=== PATIENT | female | born 2000 | race African-American/Black ===

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

== ENCOUNTER 2023-07-21 16:30 | Emergency (ER) | payer OTHER, SELFPAY ==
[2023-07-21 16:31] VITALS: BP 143/72; PULSE 116; RESP 18; O2SAT 100
[2023-07-21 18:04] VITALS: BP 116/66; PULSE 86; RESP 18; O2SAT 100
--- NOTE | 2023-07-21 18:57 | ED.GENADULT ---
[facility] - General Adult General Chief complaint: Skin/Abscess/Foreign Body Stated complaint: Lump On Back of Neck Time Seen by Provider: 07/21/23 17:00 Source: patient Mode of arrival: ambulatory Limitations: no limitations History of Present Illness [facility] narrative: This is a 22-year-old female who presents to the ED with chief complaint of neck pain and lump that has been on the back of the neck for about a week. She states that started to go away initially but has come back in the last several days. She reports redness around the site and a little bit of swelling. States ibuprofen and Tylenol are not helping. She also tried warm compresses but they did not help. Denies fevers, chills, nausea, vomiting, LOC, headache, sore throat, ear pain, numbness or weakness. Related Data Home Medications Medication Instructions Recorded Confirmed acetaminophen 325 mg tablet 325 mg PO PRN PRN Pain 07/09/20 07/09/20 ibuprofen 400 mg tablet 400 mg PO PRN PRN Pain 07/09/20 07/09/20 Allergies Allergy/AdvReac Type Severity Reaction Status Date / Time No Known Allergies Allergy Verified 07/21/23 16:54 Review of Systems Review of Systems: All systems as dictated in [facility] Social History Social History (Updated 07/09/20 @ 20:36 by Charles Bay, GLORIA) Smoking status: Never smoker Gender identity (if verbalized by the patient): Female Exam Narrative: GENERAL: Well-appearing, well-nourished, and in no acute distress. HEAD: Normocephalic, atraumatic. EYES: PERRLA and EOMI. ENT: Nares clear, no rhinorrhea or epistaxis. Mucous membranes moist. Oropharynx without tonsillar hypertrophy exudate or other lesions. NECK: Supple. No adenopathy or masses. CHEST: No respiratory distress. Clear to auscultation. No wheezes rales or rhonchi HEART: Regular rate and rhythm. No murmur heard. Normal peripheral pulses. ABDOMEN: Soft, nontender, nondistended, normal active bowel sounds. MSK: Normal range of motion. No edema. SKIN: There is an area of erythema and soft tissue swelling to the mid central dorsal neck. Swelling is minimal. There does seem to be small area of fluctuance surrounded by induration. The area is warm. NEURO: Alert and oriented x3. No focal deficits. PSYCH: Normal mood and affect. Course Vital Signs Vital signs: Vital Signs Pulse Rate 116 H 07/21/23 16:31 Respiratory Rate 18 07/21/23 16:31 Blood Pressure 143/72 H 07/21/23 16:31 Pulse Oximetry 100 07/21/23 16:31 Oxygen Delivery Room Air 07/21/23 16:31 Temperature 97.7 F 07/21/23 19:13 Pulse Rate 80 07/21/23 19:13 Respiratory Rate 14 07/21/23 19:13 Blood Pressure 118/56 L 07/21/23 19:13 Pulse Oximetry 100 07/21/23 19:13 Oxygen Delivery Room Air 07/21/23 16:31 Procedures Abscess I/D neck: Date of Incision: 07/21/23 Time of Incision: 19:43 Local Anesthetic: lidocaine 1% and with epi Amount of anesthesia used (mL): 1 Technique: incised with #11 blade Amount of fluid expressed (mL): 10 Irrigation: Yes Packing used?: none I&D Results: Pus and Blood Complications: pain Abcess I&D Additional Comments: The area was initially cleansed with iodine swabs. local lidocaine with epinephrine injected once topically over the abscess. Very small stab incision made with 11 blade. Moderate amount of purulent material expressed. Small amount of blood expressed. Medical Decision Making MDM Narrative Medical decision making narrative: This is a 22-year-old female who presents to the ED with chief complaint of dorsal neck swelling and pain for the past week. Vitals are normal. Exam does reveal an abscess to the mid dorsal neck with some fluctuance and induration. Confirmed this with bedside ultrasound. Abscess incision and drainage was performed with local injection of lidocaine with epi. Was able to express moderate amount of purulent material.
[2023-07-21 19:13] VITALS: BP 118/56; PULSE 80; RESP 14; TEMP 36.5; O2SAT 100
== END 2023-07-21 19:50 | disposition home or self-care (01) ==
PROVIDERS: Emergency Provider Physician Assistant
DX: L02.11 Cutaneous abscess of neck (principal)
CPT/HCPCS: 10060; 99283

== ENCOUNTER 2023-10-07 17:30 | Emergency (ER) | payer OTHER, SELFPAY ==
--- NOTE | ~2023-10-07 | CT_ITS ---
EXAMINATION: CT abdomen pelvis w con DATE: 10/07/2023 19:04 INDICATION: RLQ pain TECHNIQUE: Computed tomography (CT) of the abdomen and pelvis was performed with intravenous contrast . Automated exposure control and iterative reconstruction technique were employed. The dose-length pr oduct was 299.44 mGy-cm. COMPARISON: 07/09/2020. FINDINGS: Lower thorax: Unremarkable Liver: Normal. Biliary/Gallbladder: Gallbladder is normal. No bile duct dilation. Pancreas: No mass or duct dilation. Spleen: Normal. Adrenals:No mass. Kidneys: No suspicious mass, obstructing stone, or hydronephrosis. GI tract: Mild distal esophageal and gastric wall edema. No small or large bowel dilation. Normal sahra endix. Mesentery/Peritoneum: No ascites, mass, or free air. Retroperitoneum: No mass. Pelvis: Pelvic organs are within normal limits. Soft Tissues: Soft tissues and body wall unremarkable. Bones: No acute osseous finding. IMPRESSION: Mild esophagitis/gastritis. Otherwise, no acute abdominopelvic process detected. Reviewed, dictated and finalized at location K. ON PICTURE PROJECTIONIST APPRENTICE
[2023-10-07 17:33] VITALS: BP 116/74; PULSE 82; RESP 20; TEMP 37.1; O2SAT 95
[2023-10-07 17:52] VITALS: BP 126/82; PULSE 88; RESP 18; O2SAT 99
[2023-10-07 17:57] LABS: Basophils Percent Auto 0.3 % (0.2-1.2); Eosinophils Absolute Auto 0.1 K/mm3 (0-0.3); Eosinophils Percent Auto 0.9 % (0-4.4); Hematocrit 42.2 % (37.0-47.0); Hemoglobin 13.6 g/dL (12.0-15.0); Immature Granulocyte Absolute 0.03 K/mm3 (0.00-0.031); Immature Granulocyte Percent A 0.3 % (0-0.5); Lymphocytes Absolute Auto 3.99 K/mm3 (0.9-3.2); Lymphocytes Percent Auto 39.2 % (18.3-44.2); Mean Corpuscular HGB Conc 32.2 g/dl (32-36); Mean Corpuscular Hemoglobin 27.3 pg (26-34); Mean Corpuscular Volume 84.7 fl (80-100); Mean Platelet Volume 9.8 fl (7.4-10.4); Monocytes Absolute Auto 0.7 K/mm3 (0.1-0.6); Monocytes Percent Auto 6.5 % (2.6-8.5); Neutrophils Absolute Auto 5.4 K/mm3 (1.3-6.7); Neutrophils Percent Auto 52.8 % (45.5-73.1); Platelet Count Result 241 k/mm3 (150-375); Red Blood Count 4.98 M/mm3 (4.2-5.4); Red Cell Distribution Width 13.2 % (11.5-14.5); White Blood Count 10.2 K/mm3 (4.5-10.0)
[2023-10-07 18:08] LABS: Alanine Aminotransferase 33 U/L (6-35); Albumin Level 4.6 g/dL (3.5-5.1); Alkaline Phosphatase 50 U/L (38-126); Anion Gap 11 mmol/L (8-16); Aspartate Amino Transferase 33 U/L (14-36); Bilirubin,Total 0.5 mg/dL (0.2-1.3); Blood Urea Nitrogen 6 mg/dL (7-17); Calcium 9.8 mg/dL (8.4-10.2); Carbon Dioxide 24 mmol/L (22-30); Chloride 107 mmol/L (98-107); Estimated CRCL calculation 104 ml/min; Estimated Glomerular Filt Rate > 60; Glucose 92 mg/dL (65-110); Lipase 190 U/L (23-300); Potassium 3.5 mmol/L (3.4-5.0); Sodium 142 mmol/L (137-145)
[2023-10-07 18:19] LABS: Appearance Urine Clear (Clear); Bacteria Urine Rare /hpf; Bilirubin Urine Negative (Negative); Blood Urine 2+ (Negative); Color Urine Yellow (Yellow); Glucose Urine UA Negative (Negative); Ketones Urine Negative (Negative); Leukocyte Esterase Ur Negative LEU/UL (Negative); Nitrate Urine Negative (Negative); Non Pathogenic Casts 0-2; Protein Urine Negative (Negative); RBC Urine 21-50 /hpf (0-2); Specific Grav Ur 1.019 (1.001-1.035); Squamous Epithelial Cell Urine Occasional /hpf (Few); WBC Urine 0-5 /hpf; pH Urine 6.5 (5.0-9.0)
--- NOTE | 2023-10-07 18:24 | ED.ABDPAIN ---
HPI - Abdominal Pain General Chief Complaint: Abdominal Pain Stated Complaint: abd pain Time Seen by Provider: 10/07/23 17:39 History of Present Illness HPI narrative: Patient is a 23-year-old female presenting with abdominal pain. States that she has had intermittent right-sided abdominal pain for several months. She has seen her PCP who started her on an antispasmodic which she states only helps for short period. States that normally the pain is higher up in her abdomen but over the last couple days its been on the lower right side that has been worse than normal. States that she sometimes vomits after eating. Denies current nausea. Reports chronic intermittent diarrhea that is unchanged. No dysuria, hematuria, flank pain, vaginal discharge, vaginal bleeding. No further complaints. Related Data Home Medications Medication Instructions Recorded Confirmed acetaminophen 325 mg tablet 325 mg PO PRN PRN Pain 07/09/20 07/09/20 ibuprofen 400 mg tablet 400 mg PO PRN PRN Pain 07/09/20 07/09/20 Allergies Allergy/AdvReac Type Severity Reaction Status Date / Time No Known Allergies Allergy Verified 10/07/23 17:32 Review of Systems Review of Systems: All systems reviewed & are unremarkable except as noted in HPI and below PMFSH Social History Social History Smoking status: Never smoker Gender identity (if verbalized by the patient): Female Exam Narrative: GENERAL: Well-appearing, in no acute distress pleasant and cooperative HEAD: Normocephalic, atraumatic. EYES: PERRLA and EOMI. ENT: Mucous membranes moist. NECK: Supple. CHEST: Clear to auscultation. No respiratory distress. HEART: Regular rate and rhythm ABDOMEN: Soft, +RLQ tenderness wo guarding or rebound EXTREMITIES: Normal range of motion. SKIN: Warm, dry, no rash. NEURO: Alert and oriented x3. PSYCH: Normal mood and affect. Course Vital Signs Vital signs: Vital Signs Temperature 98.7 F 10/07/23 17:33 Pulse Rate 82 10/07/23 17:33 Respiratory Rate 20 10/07/23 17:33 Blood Pressure 116/74 10/07/23 17:33 Pulse Oximetry 95 10/07/23 17:33 Oxygen Delivery Room Air 10/07/23 17:33 Temperature 98.7 F 10/07/23 17:33 Pulse Rate 73 10/07/23 20:15 Respiratory Rate 17 10/07/23 20:15 Blood Pressure 120/75 10/07/23 19:15 Pulse Oximetry 99 10/07/23 20:15 Oxygen Delivery Room Air 10/07/23 17:33 MDM - Abdominal Pain MDM Narrative Medical decision making narrative: 23-year-old female presenting with right lower quadrant pain. Vitals are stable. Exam remarkable for the above. Blood work with mild leukocytosis. Normal renal function. UA is not infected. CT abdomen pelvis with esophagitis/gastritis. No other acute abnormalities. Feel the patient is safe for outpatient management. We will start her on a month of H2 salvador and give GI referral for chronic abdominal pain. Appropriate return precautions given. Discharged in stable condition. Differential Diagnosis Differential diagnosis: Likely abdominal pain, acute appendicitis, constipation, diverticulitis, gastroenteritis, pancreatitis and small bowel obstruction Medical Records Attestation: I reviewed the patient's medical records. Lab Data Attestation: I reviewed the patient's lab results. 10/07/23 17:52 10/07/23 17:52 Labs: Lab Results 10/07/23 10/07/23 Range/Units 17:52 18:04 WBC 10.2 H (4.5-10.0) K/mm3 RBC 4.98 (4.2-5.4) M/mm3 Hgb 13.6 (12.0-15.0) g/dL Hct 42.2 (37.0-47.0) % MCV 84.7 (80-100) fl MCH 27.3 (26-34) pg MCHC 32.2 (32-36) g/dl RDW 13.2 (11.5-14.5) % Plt Count 241 (150-375) k/mm3 MPV 9.8 (7.4-10.4) fl Immature Gran % (Auto) 0.3 (0-0.5) % Neut % (Auto) 52.8 (45.5-73.1) % Lymph % (Auto) 39.2 (18.3-44.2) % Shannon % (Auto) 6.5 (2.6-8.5) % Eos % (Auto) 0.9 (0-4.4) % Baso % (Auto) 0.3 (0
[2023-10-07 18:27] LABS: Add Urine Microscopic? YES
[2023-10-07] MEDS: KETOROLAC 30 MG/ML VIAL (*BKC) IV PUSH (18:44)
[2023-10-07] MEDS: SODIUM CHLORIDE 0.9% IV 1,000 ML 999 ML IV CONT (18:44)
[2023-10-07 18:45] VITALS: BP 114/56; PULSE 80; RESP 17; O2SAT 98
[2023-10-07 19:15] VITALS: BP 120/75; PULSE 80; RESP 17; O2SAT 100
[2023-10-07 20:15] VITALS: PULSE 73; RESP 17; O2SAT 99
== END 2023-10-07 21:08 | disposition home or self-care (01) ==
PROVIDERS: Emergency Medicine; Emergency Provider Emergency Medicine
DX: K20.90 Esophagitis, unspecified without bleeding (principal); K29.70 Gastritis, unspecified, without bleeding
CPT/HCPCS: 36415; 74177; 80053; 81001; 81025; 83690; 85025; 96361; 96374; 99284; J1885; J7030; Q9967

== ENCOUNTER 2024-05-09 12:49 | Emergency (ER) | payer OTHER, SELFPAY ==
--- NOTE | ~2024-05-09 | CT_ITS ---
EXAMINATION: CT abdomen pelvis w con DATE: 05/09/2024 14:49 INDICATION: Right lower quadrant abdominal pain TECHNIQUE: Computed tomography (CT) of the abdomen and pelvis was performed with 100 mL Omnipaque-350 intravenous contrast. Automated exposure control and iterative reconstruction technique were employe d. The dose-length product was 301.77 mGy-cm. COMPARISON: 10/07/2023 FINDINGS: Bilateral mid to lower lungs are clear. Heart size is normal. No pericardial or pleural effusion. Franci er, spleen, pancreas, gallbladder, bilateral adrenal glands and kidneys are normal. Bladder is normal . Subcentimeter hypoenhancing fibroid at the posterior fundus of the anteverted uterus. Bowels are no rmal with no obstruction. No free intraperitoneal gas or fluid. No pathologically enlarged abdominal or pelvic lymphadenopathy. Bones are unremarkable. IMPRESSION: 1. No acute intra-abdominal/pelvic process. 2. Small uterine fibroid. Reviewed, dictated and finalized at location A.
--- NOTE | ~2024-05-09 | US_ITS ---
US pelvic complete w TV Ordering provider: Tori Arevalo PA-C History: . RLQ pain, r/o torsion/cyst . Comparison: None. Technique: Transabdominal and endovaginal ultrasound of the pelvis (Doppler ultrasound interrogation techniques used as needed for this exam.) FINDINGS: CERVIX: Normal. UTERUS: Measures 6.5x 6.6x 4.6 cm in length which is within normal limits and is anteverted. No myom etrial masses. ENDOMETRIUM: Normal in thickness measuring 4 mm. (Note: the premenopausal endometrium may measure up to 16 mm when in the secretory phase.) No endometrial masses, cysts or fluid. CUL DE SAC: Minimal free fluid. RIGHT OVARY: Not seen. LEFT OVARY not seen. ADNEXA: Normal. No mass. IMPRESSION: Nonvisualization of the ovaries. Minimal fluid in the cul-de-sac.Otherwise, normal pelvic ultrasound. Reviewed, dictated and finalized at location A. IMPRESSION: Nonvisualization of the ovaries. Minimal fluid in the cul-de-sac.Otherwise, nor mal pelvic ultrasound.
[2024-05-09 12:52] VITALS: BP 120/65; PULSE 117; RESP 20; TEMP 36.8; O2SAT 97
[2024-05-09 13:07] LABS: Basophils Percent Auto 0.2 % (0.2-1.2); Eosinophils Absolute Auto 0.1 K/mm3 (0-0.3); Eosinophils Percent Auto 0.4 % (0-4.4); Hematocrit 39.3 % (37.0-47.0); Immature Granulocyte Absolute 0.04 K/mm3 (0.00-0.031); Immature Granulocyte Percent A 0.4 % (0-0.5); Lymphocytes Absolute Auto 2.96 K/mm3 (0.9-3.2); Lymphocytes Percent Auto 26.2 % (18.3-44.2); Mean Corpuscular HGB Conc 33.1 g/dl (32-36); Mean Corpuscular Hemoglobin 27.8 pg (26-34); Mean Corpuscular Volume 84.2 fl (80-100); Mean Platelet Volume 9.9 fl (7.4-10.4); Monocytes Absolute Auto 0.7 K/mm3 (0.1-0.6); Monocytes Percent Auto 5.8 % (2.6-8.5); Neutrophils Absolute Auto 7.6 K/mm3 (1.3-6.7); Platelet Count Result 215 k/mm3 (150-375); Red Blood Count 4.67 M/mm3 (4.2-5.4); Red Cell Distribution Width 13.2 % (11.5-14.5); White Blood Count 11.3 K/mm3 (4.5-10.0)
[2024-05-09 13:21] LABS: Alanine Aminotransferase 35 U/L (6-35); Albumin Level 4.5 g/dL (3.5-5.1); Alkaline Phosphatase 52 U/L (38-126); Anion Gap 8 mmol/L (4-12); Aspartate Amino Transferase 39 U/L (14-36); Bilirubin,Total 0.5 mg/dL (0.2-1.3); Blood Urea Nitrogen 10 mg/dL (7-17); Calcium 9.5 mg/dL (8.4-10.2); Carbon Dioxide 23 mmol/L (22-30); Chloride 107 mmol/L (98-107); Estimated CRCL calculation 114 ml/min; Estimated Glomerular Filt Rate > 60; Glucose 109 mg/dL (65-110); Lipase 763 U/L (23-300); Potassium 3.7 mmol/L (3.4-5.0); Sodium 138 mmol/L (137-145)
[2024-05-09 14:01] LABS: Appearance Urine Clear (Clear); Bacteria Urine None Seen /hpf; Bilirubin Urine Negative (Negative); Blood Urine 2+ (Negative); Color Urine Yellow (Yellow); Glucose Urine UA Negative (Negative); Ketones Urine 1+ mg/dL (Negative); Leukocyte Esterase Ur Negative LEU/UL (Negative); Nitrate Urine Negative (Negative); Non Pathogenic Casts 0-2; Protein Urine Negative (Negative); RBC Urine 21-50 /hpf (0-2); Specific Grav Ur 1.028 (1.001-1.035); Squamous Epithelial Cell Urine None Seen /hpf (Few); WBC Urine 0-5 /hpf (0-3); pH Urine 6.5 (5.0-9.0)
[2024-05-09 14:12] LABS: Add Urine Microscopic? YES
--- NOTE | 2024-05-09 14:25 | ED.ABDPAIN ---
HPI - Abdominal Pain General Chief Complaint: Abdominal Pain Stated Complaint: abd pain Time Seen by Provider: 05/09/24 13:15 Source: patient Mode of arrival: ambulatory Limitations: no limitations History of Present Illness HPI narrative: patient is a 23-year-old female who presents the ED with report of right lower abdominal pain. Patient reports pain has been intermittent for the last several months. She states pain has become worse and more constant over last few days. Radiates slightly to her right lower back. She has been taking Tylenol for the pain without improvement. States she was previously told she may have gastritis, but has been taking medication for this and denies improvement. reports diarrhea for the last 2 days, denies rectal bleeding or melena. Denies nausea, vomiting, fevers, dysuria, hematuria, vaginal bleeding, vaginal discharge. Related Data Home Medications Medication Instructions Recorded Confirmed acetaminophen 325 mg tablet 325 mg PO PRN PRN Pain 07/09/20 07/09/20 ibuprofen 400 mg tablet 400 mg PO PRN PRN Pain 07/09/20 07/09/20 Allergies Allergy/AdvReac Type Severity Reaction Status Date / Time No Known Allergies Allergy Verified 10/07/23 17:32 Review of Systems Review of Systems: CONSTITUTIONAL: Denies fever, chills, or sweats. GASTROINTESTINAL: See HPI. GENITOURINARY: Denies dysuria or hematuria. MUSCULOSKELETAL: See HPI. All systems reviewed & are unremarkable except as noted in HPI and below PMFSH Social History Social History Smoking status: Never smoker Gender identity (if verbalized by the patient): Female Exam Narrative: GENERAL: Well appearing, well-nourished, non-toxic, in no acute distress. HEAD: Normocephalic, atraumatic. RESPIRATORY: Airway patent, respirations nonlabored. Clear to auscultation bilaterally, no rales, rhonchi, wheezing. CARDIOVASCULAR: Regular rate and rhythm without murmurs, rubs, or gallops. ABDOMINAL: Soft, Mild focal tenderness in right lower abdomen, no rebound, nondistended. Normoactive BS. MUSCULOSKELETAL: Moves all extremities. No gross deformities. SKIN: Warm, dry, normal color. NEURO: A&O X3. Speech clear. Cranial nerves II-XII grossly intact. Steady gait. No ataxic movements. PSYCHIATRIC: Appropriate mood and affect. Normal interaction. Course Vital Signs Vital signs: Vital Signs Temperature 98.2 F 05/09/24 12:52 Pulse Rate 117 H 05/09/24 12:52 Respiratory Rate 20 05/09/24 12:52 Blood Pressure 120/65 05/09/24 12:52 Pulse Oximetry 97 05/09/24 12:52 Oxygen Delivery Room Air 05/09/24 12:52 Temperature 98.2 F 05/09/24 12:52 Pulse Rate 91 05/09/24 16:35 Respiratory Rate 16 05/09/24 16:35 Blood Pressure 99/68 L 05/09/24 16:35 Pulse Oximetry 99 05/09/24 16:35 Oxygen Delivery Room Air 05/09/24 12:52 MDM - Abdominal Pain MDM Narrative Medical decision making narrative: patient presented to ED with several month history of right lower abdominal pain, worsening over last few days. Associated with diarrhea. No other associated symptoms. Vitals are stable. Patient in no acute distress, resting comfortably on ED stretcher. Mild right lower abdominal tenderness on exam. CBC with white blood cell count of 11.3. CMP unremarkable. Normal LFTs. Lipase is mildly elevated to 763. Patient without any epigastric tenderness, nausea, vomiting, food intolerance. Urine with ketones, 21-50 RBC, no signs of infection. CT scan of abdomen pelvis was obtained and unremarkable. Did show small uterine fibroid. No evidence of pancreatitis. Pelvic ultrasound obtained and did not show either ovary, but no adnexal abnormality was noted, minimal free fluid, no other acute findings. Patient updated on lab and imaging results, overall reassuring workup. She reports she has microscopic blood in her urine frequently, she has been to
[2024-05-09] MEDS: MORPHINE SULFATE (*CRX) 2 MG/ML INJ IV PUSH (14:28)
[2024-05-09] MEDS: ONDANSETRON INJ 4 MG/2 ML VIAL IV PUSH (14:28)
[2024-05-09 16:35] VITALS: BP 99/68; PULSE 91; RESP 16; O2SAT 99
== END 2024-05-09 16:37 | disposition home or self-care (01) ==
PROVIDERS: Emergency Medicine; Emergency Provider Physician Assistant
DX: R10.31 Right lower quadrant pain (principal); D25.9 Leiomyoma of uterus, unspecified; R74.8 Abnormal levels of other serum enzymes
CPT/HCPCS: 36415; 74177; 76830; 76856; 80053; 81001; 81025; 83690; 85025; 96374; 96375; 99284; J2270; J2405; Q9967

== ENCOUNTER 2025-03-12 22:24 | Observation (INO) | payer OTHER, SELFPAY ==
[2025-03-12] VITALS (10 sets, daily range): BP systolic 118–126; BP diastolic 69–80; PULSE 77–103; O2SAT 98–100
--- OUTSIDE RECORDS SUMMARY | 2025-03-12 22:32 | XMS_ITS | Clinical Summary ---
Author Organization [facility] Address [address] 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 This disclosure is being madepursuant to the Care Everywhere program and may not contain all information available regarding this patient. Last updated 18.[facility] Allergies No known active allergies Medications * Be aware that medications may not be up to date on this document. Alwaysverify current medications with the patient. 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 Gender Identity Not on file Sexual Orientation Not on file Last Filed Vital Signs Vital Sign Reading Time Taken Comments Blood Pressure 121/61 10/09/2015 10:22 PM CULLET CRUSHER Pulse 130 10/09/2015 10:30 PM CULLET CRUSHER Temperature 37.5 C (99.5 F) 10/09/2015 10:30 PM CULLET CRUSHER Respiratory Rate 20 10/09/2015 10:30 PM CULLET CRUSHER Oxygen Saturation 98% 10/09/2015 10:22 PM CULLET CRUSHER Inhaled Oxygen Concentration - - Weight 62.3 kg (137 lb 5.6 oz) 10/09/2015 10:22 PM CULLET CRUSHER Height - - Body Mass Index - - Plan of Treatment Health Maintenance Due Date Last Done Comments PAP SMEAR 2002 HIV SCREENING 2017 HPV VACCINE (1 - 3-dose series) 2017 CHLAMYDIA/GONORRHEA SCREENING 2018 MENINGOCOCCAL (Group B) VACC INE SHARED DECISION-MAKING (1 of 2 - Standard) 2018 HEPATITIS C SCREENING 07/26/2020 DTAP/TDAP/TD VACCINES (1 - Tdap) 2021 HEPATITIS B VACCINE (1 of 3 - 19+ 3-dose series) 2021 COVID-19 VACCINE (1 - 2023-2 5 season) 2024 DEPRESSION SCREENING 11/26/2024 INFLUENZA VACCINE (Season Ended) 2025 ZOSTER VACCINE (1 of 2) 2052 HIB VACCINE Aged Out No longer eligi ble based on patient's age to complete this topic MENINGOCOCCAL GROUPS A/C/Y/W VACCINE Aged Out No longer eligible b ased on patient's age to complete this topic PNEUMOCOCCAL VACCINE Aged Out No long er eligible based on patient's age to complete this topic Insurance [facility] Care Teams Pie Bakery Laborer Relationship Specialty Start Date End Date Liza Tay DO PCP - General Pediatrics 10/09/15
--- OUTSIDE RECORDS SUMMARY | 2025-03-12 22:32 | XMS_ITS | Encounter Summary ---
Author Organization [facility] Address [address] [place] [address] Care Team Providers Care Private Inquiry Agent Name Role Phone Barbie Rodriguez MD Primary Care Provider [phone] Encounter Details Date Type Department Care Team (Late st Contact Info) Description 03/10/2025 External Device Data [facility] ABSTRACTION Provider, Abstract NO ADDRESS ON FILE Social History Tobacco Use Types Packs/Day Years Used Date Smoking Tobacco: Never Smokeless Tobacco: Never Alcohol Use Standard Drinks/Week Comments Never 0 (1 standard drink = 0.6 oz pur e alcohol) Comments No Sex and Gender Information Value Date Recorded Sex Assigned at Not on file Legal 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
--- OUTSIDE RECORDS SUMMARY | 2025-03-12 22:32 | XMS_ITS | Clinical Summary ---
Author Organization [facility] [place] Address [address] [place] [id number] Care Team Providers Care Senior Care Manager Name Role Phone Barbie Rodriguez MD Primary Care Provider [phone] Allergies No known active allergies Medications fluticasone propionate (FLONASE) 50 mcg/spray [place], Suspension nasal inhaler Administer 2 Sprays in each nostril daily. 16 Gram 3 Active Slynd 4 mg (28) Tablet Take 1 Tablet by mouth daily. 3 Active omeprazole (PriLOSEC) 20 mg Capsule, Delayed Release(E.C.)In dications:Dyspe psia Take 1 Capsule (20 mg) by mouth daily. 30 Capsule 4 Active mefenamic acid (PONSTEL) 250 mg Capsule Take 2 capsules (500 mg) by mouth at start of vaginal bleeding and symptoms, then one capsule ( 250 mg) every 6 hours for 2 to 3 days and stop. 30 Capsule 4 Active Active Problems Problem Noted Date Diagnosed Date Dyspepsia 10/16/2023 Generalized anxiety disorder 05/31/2023 Encounters Date Type Department Care Team Description 03/10/2025 External Device Data STL ABSTRACTION Provider, Abstract 02/11/2025 External Device Data STL ABSTRACTION Provider, Abstract 02/11/2025 External Device Data ST[facility] ABSTRACTION Provider, Abstract 01/31/2025 External Device Data [facility] ABSTRACTION Provider, Abstract 01/30/2025 External Device Data [facility] ABSTRACTION Provider, Abstract 01/27/2025 External Device Data ST[facility] ABSTRACTION Provider, Abstract 01/13/2025 External Device Data STL ABSTRACTION Provider, Abstract 12/23/2024 External Device Data STL ABSTRACTION Provider, Abstract 12/17/2024 External Device Data STL ABSTRACTION Provider, Abstract 12/16/2024 External Device Data STL ABSTRACTION Provider, Abstract from Last 3 Months Immunizations Immunization Administration Dates Next Due INFLUENZA VACCINE QUADRIVALENT 6 MOS UP PF IM Family History Medical History Relation Name Comments No Known Problems Father No Known Problems Half-Sister 1 No Known Problems Half-Sister 2 No Known Problems Maternal Grandfather Liver Disease Maternal Grandmother No Known Problems Mother Unknown Paternal Grandfather Unknown Paternal Grandmother Relation Name Status Comments Father Alive Half-Sister 1 Alive Half-Sister 2 Alive Maternal Grandfather Alive Maternal Grandmother Mother Alive Paternal Grandfather Other Paternal Grandmother Other Social History Tobacco Use Types Packs/Day Years Used Date Smoking Tobacco: Never Smokeless Tobacco: Never Tobacco Cessation:Counseling Given: Not Answered Alcohol Use Standard Drinks/Week Comments Never 0 (1 standard drink = 0.6 oz pur e alcohol) Comments No Sex and Gender Information Value Date Recorded Sex Assigned at Not on file Legal Sex Female 3:[address] [employer] Gender Identity Not on file Sexual Orientation Not on file Last Filed Vital Signs Vital Sign Reading Time Taken Comments Blood Pressure 116/68 06/24/2024 1:47 PM CDT Pulse 96 06/23/2024 2:28 PM CDT Temperature 36.6 C (97.8 F) 06/23/2024 2:28 PM CDT Respiratory Rate 16 11/13/2023 10:[address] L[address] Oxygen Saturation 98% 06/23/2024 2:28 PM CDT Inhaled Oxygen Concentration - - Weight 68 kg (150 lb) 06/24/2024 1:47 PM CDT Height 158.8 cm (5' 2.5 ) 06/24/2024 1:47 PM CDT Body Mass Index 27 06/24/2024 1:47 PM CDT Plan of Treatment Health Maintenance Due Date Last Done Comments CHLAMYDIA SCREENING (ANNUAL) 11-24 YEARS 2013 HPV VACCINES (1 - 3-dose series) 2017 DTAP/TDAP/TD VACCINES (1 - Tdap) 2021 HEPATITIS B VACCINES (1 of 3 - 19+ 3-dose series) 2021 CERVICAL CANCER SCREENING 2023 HPV/Cotest (21-29) 2023 PAP SMEAR 2023 INFLUENZA VACCINE (#1) 2024 08/22/2023 PNEUMOCOCCAL VACCINE 0-49 YEARS Aged Out No longer eligible based on patient's age to complete this topic Insurance [facility] OPEN ACCESS Care Teams Senior Care Manager Relationship Specialty Start Date End Date Barbie Rodriguez MD [address] [place] [id number] PCP - General Internal Medicine 06/20/24
--- NOTE | 2025-03-12 22:49 | PC.NURSE ---
Pt is a presenting to L&D with complaints of RUQ pain that shoots down to vaginal area. Pt states the pain comes and goes and has been present since this AM. Pt rating pain 7/10. Pt denies any vaginal bleeding, LOF, falls or trauma to abdomen. Pt states she has not taken any pain medication for this pain. Abdomen is soft to palpation. Upon palpation, pt states pain is worsened.
[2025-03-12 22:57] LABS: Add Urine Microscopic? YES; Appearance Urine Clear (Clear); Bacteria Urine Rare /hpf; Bilirubin Urine Negative (Negative); Blood Urine Trace (Negative); Color Urine Yellow (Yellow); Glucose Urine UA Negative (Negative); Ketones Urine Negative (Negative); Leukocyte Esterase Ur Negative LEU/UL (Negative); Nitrate Urine Negative (Negative); Non Pathogenic Casts 0-2; Protein Urine Negative (Negative); Specific Grav Ur 1.015 (1.001-1.035); Squamous Epithelial Cell Urine None Seen /hpf (Few); Urobilinogen Urine 0.2 mg/dL (<2.0); WBC Urine 0-5 /hpf (0-3); pH Urine 6.5 (5.0-9.0)
--- NOTE | 2025-03-12 23:09 | PC.NURSE ---
RN called MD and notified him of pts arrival to L&D with complaints of RUQ pain that shoots down to vaginal area. Pt states the pain comes and goes and has been present since this AM. Pt rating pain 7/10. Pt denies any vaginal bleeding, LOF, falls, or trauma to abdomen. Pt states she has not taken any pain medication for this pain. Abdomen is soft to palpation. Upon palpation, pt states pain is worsened. MD notified of pts UA results as well as reactive NST. Orders received for 1gm Tylenol PO Once and discharge.
[2025-03-12] MEDS: ACETAMINOPHEN 500 MG TABLET 1000 MG PO (23:20)
--- NOTE | 2025-03-12 23:28 | OBADM ---
This patient, Brigid Alicea, admitted to the OB room OB Post 117 for observation. Patient/family oriented to hospital policies and general routines including ID bracelet, bed and alarms, visiting hours, pain management, procedures, bathroom and other care routines, personal items, smoking policy, room service/diet, and visiting hours. Patient/Family are encouraged to report perceived risks to care and to ask questions if they do not understand what they are told or what they should do.
--- NOTE | 2025-03-23 08:58 | PM.OBTRLD ---
OB - Triage/Final Diagnosis Visit Information Comments/Additional reasons for admission: I have assessed the risk for this patient, Brigid Alicea, and determined that she would benefit from observation care. Evaluation Laboratory results: Laboratory Tests 03/12/25 22:44 Urine Color Yellow Urine Appearance Clear Urine pH 6.5 Ur Specific [place] 1.015 Urine Protein Negative Urine Glucose (UA) Negative Urine Ketones Negative Ur Blood (Man) Trace Urine Nitrate Negative Urine Bilirubin Negative Urine Urobilinogen 0.2 Leukocyte Esterase Rfl Negative Urine RBC 6-10 H Urine WBC 0-5 Ur Squamous Epith Cells None seen Urine Bacteria Rare Urine Casts 0-2 Final Diagnosis (1) Abdominal pain affecting : Code(s): O26.899 - Other specified related conditions, unspecified trimester; R10.9 - Unspecified abdominal pain Status: Acute
== END 2025-03-12 23:26 | disposition home or self-care (01) ==
PROVIDERS: Admitting Provider Obstetrics & Gynecology; Visit Provider Obstetrics & Gynecology
DX: O26.899 Other specified pregnancy related conditions, unspecified trimester (principal); R10.9 Unspecified abdominal pain; Z3A.00 Weeks of gestation of pregnancy not specified
CPT/HCPCS: 59025; 81001; A9270; G0378; G0379

== ENCOUNTER 2025-04-22 08:24 | Inpatient (IN) | payer OTHER, SELFPAY ==
[2025-04-22] VITALS (218 sets, daily range): BP systolic 76–163; BP diastolic 37–122; PULSE 74–125; RESP 16–20; TEMP 36.2–37.1; O2SAT 94–100; BMI 37.0
--- OUTSIDE RECORDS SUMMARY | 2025-04-22 10:12 | XMS_ITS | Clinical Summary ---
Author Organization [facility] Address [address] [place] [address] Care Team Providers Care Application Software Engineer Name Role Phone Liza Tay Primary Care Provider [phone] Source Comments [facility],non-owned Affiliates and Associated Physician Practices is amultiple site organization consisting of ambulatory clinics and hospital sitesin [place], [place], [place] and [place]. This disclosure is being madepursuant to the Care Everywhere program and may not contain all information available regarding this patient. Last updated 18.[facility] Allergies No known active allergies Medications * [...] on file Legal Sex Female 10:08 PM PREFINISH OPERATOR Gender Identity Not on file Sexual Orientation Not on file Last Filed Vital Signs Vital Sign Reading Time Taken Comments Blood Pressure 121/61 10/09/2015 10:22 PM PREFINISH OPERATOR Pulse 130 10/09/2015 10:30 PM PREFINISH OPERATOR Temperature 37.5 C (99.5 F) 10/09/2015 10:30 PM PREFINISH OPERATOR Respiratory Rate 20 10/09/2015 10:30 PM PREFINISH OPERATOR Oxygen Saturation 98% 10/09/2015 10:22 PM PREFINISH OPERATOR Inhaled Oxygen Concentration - - Weight 62.3 kg (137 lb 5.6 oz) 10/09/2015 10:22 PM PREFINISH OPERATOR Height - - Body Mass Index - - Plan of Treatment Health Maintenance Due Date Last Done Comments HIV SCREENING 2017 HPV VACCINE (1 - [...] patient's age to complete this topic Insurance [facility] Care Teams Application Software Engineer Relationship Specialty Start Date End Date Liza Tay DO PCP - General Pediatrics 10/09/15
--- OUTSIDE RECORDS SUMMARY | 2025-04-22 10:12 | XMS_ITS | Clinical Summary ---
Author Organization [facility] [employer] [place] Address [address] [place] [id number] Care Team Providers Care Radio Division Lieutenant Name Role Phone Barbie Rodriguez MD Primary Care Provider [phone] Allergies No known active allergies Medications fluticasone propionate (FLONASE) 50 mcg/spray [place], Suspension nasal inhaler Administer 2 Sprays in [...] Encounters Date Type Department Care Team Description 04/16/2025 External Device Data STL ABSTRACTION Provider, Abstract 04/16/2025 External Device Data STL ABSTRACTION Provider, Abstract 04/16/2025 External Device Data STL ABSTRACTION Provider, Abstract 04/15/2025 External Device Data STL ABSTRACTION Provider, Abstract 04/14/2025 External Device Data STL ABSTRACTION Provider, Abstract 03/10/2025 External Device Data STL ABSTRACTION Provider, [...] on file Legal Sex Female 3:02 PM ADMITTING CLERK Gender Identity Not on file Sexual Orientation Not on file Last Filed Vital Signs Vital Sign Reading Time Taken Comments Blood Pressure 116/68 06/24/2024 1:47 PM CDT Pulse 96 06/23/2024 2:28 PM CDT Temperature 36.6 C (97.8 F) 06/23/2024 2:28 PM CDT Respiratory Rate 16 11/13/2023 10:59 AM ADMITTING CLERK Oxygen Saturation 98% 06/23/2024 2:28 PM CDT Inhaled Oxygen Concentration - - Weight 68 kg (150 lb) 06/24/2024 1:47 PM CDT Height 158.8 cm (5' 2.5) 06/24/2024 1:47 PM CDT Body Mass Index 27 06/24/2024 1:47 PM CDT Plan of Treatment Health Maintenance Due Date Last Done Comments CHLAMYDIA SCREENING (ANNUAL) 11-24 YEARS 2013 HPV VACCINES (1 - 3-dose series) 2017 DTAP/TDAP/TD VACCINES (1 - Tdap) 2021 HEPATITIS B VACCINES (1 of 3 - 19+ 3-dose series) 03/2021 CERVICAL CANCER SCREENING 2023 HPV/Cotest (21-29) 2023 PAP SMEAR 2023 INFLUENZA VACCINE (#1) 2024 08/22/2023 Insurance [employer] OPEN ACCESS Care Teams Radio Division Lieutenant Relationship Specialty Start Date End Date Barbie Rodriguez MD [address] [place] [id number] PCP - General Internal Medicine 06/20/24
--- NOTE | 2025-04-22 10:42 | PM.IMHP ---
H&P: HPI History of Present Illness Date/Time: 04/22/25 10:42 Chief Complaint: Labor at term Narrative: This is a 23-year-old 1 para 0 whose last menstrual period was 07/15/2024, EDC is 04/21/2025, presents at 417 weeks gestation active labor. She has positive group B strep and has an otherwise unremarkable she was positive for THC on her admitting [facility] Review of Systems Review of Systems: CONSTITUTIONAL: Denies fever, chills, or sweats. GASTROINTESTINAL: See HPI. GENITOURINARY: Denies dysuria or hematuria. MUSCULOSKELETAL: See HPI. All systems reviewed & are unremarkable except as noted in HPI and below PMFSH Family History Family History Grandparent Diabetes mellitus Cancer Other Hypertension Social History Social History Smoking status: Never smoker Substance use: never Do You Feel Safe in your Home?: Yes Lack of Transportation: No Lack of Food: Never True Current Housing: I Have Housing Concerned About Future Housing: No Difficulty Paying Gas/Electric Bills: No Difficulty Paying for Meds: No Currently Unemployed: No Education: High School Diploma/GED Difficulty w/ Childcare or Family Care: No Gender identity (if verbalized by the patient): Female Spiritual care concerns: No Meds Home Medications and Allergies Home Medications ?Medication ?Instructions ?Recorded ?Confirmed ?Type acetaminophen 325 mg tablet 325 mg PO PRN PRN Pain 07/09/20 04/04/25 History calcium carbonate (Tums) 300 mg PO QID PRN dyspepsia 04/04/25 04/04/25 History vits no.130-ferrous fum 1 tablet PO DAILY 04/04/25 04/04/25 History 27 mg iron-folic acid 800 mcg tablet ( Vitamin) Allergies Allergy/AdvReac Type Severity Reaction Status Date / Time No Known Allergies Allergy Verified 04/04/25 13:38 Vital Signs Vital Signs - 24 hr 04/22/25 10:08 04/22/25 10:13 04/22/25 10:18 Pulse Rate Blood Pressure Pulse Oximetry 98 98 98 04/22/25 10:23 04/22/25 10:28 04/22/25 10:31 Pulse Rate Blood Pressure 138/120 H Pulse Oximetry 97 98 04/22/25 10:32 04/22/25 10:33 Pulse Rate 85 Blood Pressure 142/66 H Pulse Oximetry 100 Exam Const: General: cooperative, healthy appearing and comfortable Nutritional Appearance: average body habitus Orientation/consciousness: oriented to person, oriented to place and oriented to time HENMT: Head: normal to inspection Resp: Effort & Inspection: normal respiratory effort Cardio: Rate: regular rate Rhythm: regular rhythm Heart sounds: S1 normal heart sound present and S2 normal heart sound present GI: Inspection: normal to inspection (Gravid soft uterus) : Speculum Exam - Vagina: normal appearance of the vagina Speculum Exam - Cervix: normal appearance of the cervix (Cervix 2/75/2. AROM clear. FHT is reassuring) Assessment and Plan Assessment and plan (1) Term : Code(s): Z34.90 - Encounter for supervision of normal , unspecified, unspecified trimester Status: Acute (2) Positive testing for group B Streptococcus: Code(s): B95.1 - Streptococcus, group B, as the cause of diseases classified elsewhere Status: Acute Plan Will initiate Pitocin if needed. Group B strep prophylaxis will be undertaken. She is an epidural candidate but does not choose 1 presently
[2025-04-22] MEDS: LACTATED RINGERS 1,000 ML 125 ML IV CONT ×2 (11:07→16:55)
[2025-04-22 11:08] LABS: Basophils Percent Auto 0.1 % (0.2-1.2); Eosinophils Absolute Auto 0.1 K/mm3 (0-0.3); Eosinophils Percent Auto 0.4 % (0-4.4); Hematocrit 38.5 % (37.0-47.0); Hemoglobin 12.5 g/dL (12.0-15.0); Immature Granulocyte Absolute 0.13 K/mm3 (0.00-0.031); Immature Granulocyte Percent A 0.8 % (0-0.5); Lymphocytes Absolute Auto 2.93 K/mm3 (0.9-3.2); Lymphocytes Percent Auto 19.1 % (18.3-44.2); Mean Corpuscular HGB Conc 32.5 g/dl (32-36); Mean Corpuscular Hemoglobin 27.1 pg (26-34); Mean Corpuscular Volume 83.3 fl (80-100); Mean Platelet Volume 10.6 fl (7.4-10.4); Monocytes Absolute Auto 1.1 K/mm3 (0.1-0.6); Monocytes Percent Auto 6.9 % (2.6-8.5); Neutrophils Absolute Auto 11.1 K/mm3 (1.3-6.7); Neutrophils Percent Auto 72.7 % (45.5-73.1); Platelet Count Result 252 k/mm3 (150-375); Red Blood Count 4.62 M/mm3 (4.2-5.4); Red Cell Distribution Width 14.6 % (11.5-14.5); White Blood Count 15.3 K/mm3 (4.5-10.0)
[2025-04-22] MEDS: AMPICILLIN 2 GM/NS 100 ML 2 GM/100 ML BAG IVPB (11:08)
[2025-04-22 11:54] LABS: Alanine Aminotransferase 12 U/L (6-35); Albumin Level 3.6 g/dL (3.5-5.1); Alkaline Phosphatase 149 U/L (38-126); Anion Gap 8 mmol/L (4-12); Aspartate Amino Transferase 26 U/L (14-36); Bilirubin,Total 0.2 mg/dL (0.2-1.3); Blood Urea Nitrogen 8 mg/dL (7-17); Calcium 9.1 mg/dL (8.4-10.2); Carbon Dioxide 18 mmol/L (22-30); Chloride 107 mmol/L (98-107); Estimated Glomerular Filt Rate > 60; Glucose 91 mg/dL (65-110); Potassium 3.9 mmol/L (3.4-5.0); Sodium 133 mmol/L (137-145); Uric Acid 5.8 mg/dL (2.5-7.5)
[2025-04-22 12:00] LABS: Syphilis IgG/IgM Antibody Negative (Negative)
--- NOTE | 2025-04-22 12:30 | LDADM ---
This patient, Brigid Fernandez, was admitted to Labor/Delivery/Recovery 104 on 04/22/25 at 08:24. Plans for labor, pain management and were discussed with patient. Patient/family oriented to hospital policies and general routines including ID bracelet, bed and alarms, visiting hours, pain management, procedures, bathroom and other care routines, personal items, smoking policy, room service/diet and guest tray routines, security routines, and visiting hours. Patient/Family are encouraged to report perceived risks to care and to ask questions if they do not understand what they are told or what they should do. See OBIX for further documentation.
[2025-04-22] MEDS: OXYTOCIN 30 UNITS/NS 500 ML 30 UNITS/500 ML BAG IV CONT (13:58)
[2025-04-22 14:28] LABS: HIV 1/2 Ab P24 Ag Result Negative (Negative)
[2025-04-22] MEDS: AMPICILLIN 1 GM/NS 50 ML 1 GM/50 ML BAG IVPB ×3 (15:09→23:00)
[2025-04-22] MEDS: fentaNYL CITRATE INJ (*CRX) 100 MCG/2 ML VIAL 50 MCG IV PUSH ×2 (15:16→15:35)
--- NOTE | 2025-04-22 16:13 | PM.OBPNLAB ---
Pain Control Date/time seen: 04/22/25 16:13 Pain control: tolerating well Comments: wants epidural Pelvic Exam Dilation (cm): 2 Effacement (%): 80 station: -2 Amniotic membrane status: Leaking Contractions Monitor mode: Internal
--- NOTE | 2025-04-22 17:04 | WPDANESEPP ---
Anes - Eval Pre Procedure Procedure: Labor epidural Date/Time: 04/22/25 17:04 Surgeon: Dylan Pisano Preop Diagnosis: Abdominal pain with contractions Pre Op Diagnosis: Labor Patient Data Age: 24 Gender: F Height: 1.6 m Weight: 95 kg Last Vital Signs Temp 98.4 F 04/22/25 15:00 Pulse 93 04/22/25 17:02 Resp 20 04/22/25 15:00 BP 144/81 H 04/22/25 17:02 Pulse Ox 98 04/22/25 16:59 O2 Del Method Room Air 04/22/25 11:10 Allergies Allergy/AdvReac Type Severity Reaction Status Date / Time No Known Allergies Allergy Verified 04/22/25 12:28 Home Medications ?Medication ?Instructions ?Recorded ?Confirmed ?Type acetaminophen 325 mg tablet 325 mg PO PRN PRN Pain 07/09/20 04/04/25 History calcium carbonate (Tums) 300 mg PO QID PRN dyspepsia 04/04/25 04/22/25 History vits no.130-ferrous fum 1 tablet PO DAILY 04/04/25 04/22/25 History 27 mg iron-folic acid 800 mcg tablet ( Vitamin) Laboratory Tests 04/22/25 04/22/25 04/22/25 10:57 10:57 10:58 WBC 15.3 H K/mm3 (4.5-10.0) RBC 4.62 M/mm3 (4.2-5.4) Hgb 12.5 g/dL (12.0-15.0) Hct 38.5 % (37.0-47.0) MCV 83.3 fl (80-100) MCH 27.1 pg (26-34) MCHC 32.5 g/dl (32-36) RDW 14.6 H % (11.5-14.5) Plt Count 252 k/mm3 (150-375) MPV 10.6 H fl (7.4-10.4) Immature Gran % (Auto) 0.8 H % (0-0.5) Neut % (Auto) 72.7 % (45.5-73.1) Lymph % (Auto) 19.1 % (18.3-44.2) [place] % (Auto) 6.9 % (2.6-8.5) Eos % (Auto) 0.4 % (0-4.4) Baso % (Auto) 0.1 L % (0.2-1.2) Lymph # (Auto) 2.93 K/mm3 (0.9-3.2) [place] # (Auto) 1.1 H K/mm3 (0.1-0.6) Eos # (Auto) 0.1 K/mm3 (0-0.3) Baso # (Auto) 0.0 K/mm3 (0.0-0.1) Abs Immat Gran (auto) 0.13 H K/mm3 (0.00-0.031) Absolute Neuts (auto) 11.1 H K/mm3 (1.3-6.7) Absolute Nucleated RBC 0.000 K/mm3 (0.0-0.012) Nucleated RBC % 0.0 % (0.0-0.2) Sodium 133 L mmol/L (137-145) Potassium 3.9 mmol/L (3.4-5.0) Chloride 107 mmol/L (98-107) Carbon Dioxide 18 L mmol/L (22-30) Anion Gap 8 mmol/L (4-12) BUN 8 mg/dL (7-17) Creatinine 0.46 L mg/dL (0.7-1.0) Estim Creat Clear Calc Not Reportable Estimated GFR > 60 (59 - ) Glucose 91 mg/dL (65-110) Uric Acid Cancelled 5.8 mg/dL (2.5-7.5) Calcium 9.1 mg/dL (8.4-10.2) Total Bilirubin 0.2 mg/dL (0.2-1.3) AST 26 U/L (14-36) ALT 12 U/L (6-35) Alkaline Phosphatase 149 H U/L (38-126) Total Protein 7.0 g/dL (6.3-8.2) Albumin 3.6 g/dL (3.5-5.1) Syphilis IgG/IgM Ab Negative (Negative) HIV 1&2 Ab/P24 Ag 4thGn Negative (Negative) Blood Type O Positive Antibody Screen Negative : gestational age HCG: positive Patient hx anesthesia problems: none Family hx anesthesia problems: none Results Review: All pre-operative results and documents have been reviewed as part of the pre-operative evaluation. [facility] Past Medical History Medical History Obesity Anxiety Term Family History Family History Grandparent Diabetes mellitus Cancer Other Hypertension Social History Social History Smoking status: Former smoker Tobacco type: e-cigarettes/vaping Additional smoking assessment comments: Frequent vaping prior to stopping Substance use: never Do You Feel Safe in your Home?: Yes Lack of Transportation: No Lack of Food: Never True Current Housing: I Have Housing Concerned About Future Housing: No Difficulty Paying Gas/Electric Bills: No Difficulty Paying for Meds: No Currently Unemployed: No Education: High School Diploma/GED Difficulty w/ Childcare or Family Care: No Gender identity (if verbalized by the patient): Female Spiritual care concerns: No Exam Day of Procedure 04/22/25 17:04 Patient weight: obese Lungs: clear to auscultation
[2025-04-22] MEDS: ONDANSETRON INJ 4 MG/2 ML VIAL IV PUSH (18:46)
[2025-04-22] MEDS: SODIUM CHLORIDE 0.9% IV 300 ML 600 ML I-UTERINE (19:16)
[2025-04-23] VITALS (93 sets, daily range): BP systolic 119–161; BP diastolic 63–97; PULSE 91–147; RESP 16–20; TEMP 36.5–37.4; O2SAT 95–100
[2025-04-23] MEDS: AMPICILLIN 1 GM/NS 50 ML 1 GM/50 ML BAG IVPB (03:05)
--- NOTE | 2025-04-23 04:39 | P.PCNOB_ITS ---
OB - Vaginal Delivery Note Procedure Delivery date: 04/23/25 Events: Positive Group B Strep (GBS) Induction method: None Delivery augmentation: Rupture of Membranes and Pitocin Delivery monitor: External FHT and Internal Uterine Route of delivery: Episiotomy description: None Laceration Description: None Specimen: No Quantitative Blood Loss (ml): 62 Anesthesia type: Epidural Disposition: Floor Complications: No immediate complications Narrative: The patient was admitted in active labor on the mid a.m. 04/22/2025. She is positive for group B strep and received vaginally 6 doses ampicillin. Rupture membranes was performed and Pitocin augmentation undertaken. When she was complete she pushed delivered head spontaneously in the JIM anterior posterior shoulder delivered spontaneously. Cord clamped x2 and cut passed off the table given Apgars of 7 [id number] and 8 [id number]. Cord clamped x2 p. Placenta delivered intact spontaneously. Twenty of Pitocin placed IV to help firm the uterus. No tears or lacerations were noted. Baby and mom were doing fine at the time of dictation [place] Baby Date of : 04/23/25 Time of : 04:29 Gestational Age by Date: 42 gender: Male presentation: vertex position: Right Occiput Anterior Placenta delivery description: Spontaneous Cord Vessel Description: 3 Vessels score one minute: 7 score five minutes: 8 Narrative: Ampicillin x6 for group B strep
--- NOTE | 2025-04-23 04:43 | P.DS_ITS ---
DS: Admitting Diagnosis Discharge Date 04/24/2025 Admitting Diagnosis Term /positive B strep DS: Discharge Diagnosis Discharge Diagnosis (1) Term : Code(s): Z34.90 - Encounter for supervision of normal , unspecified, unspecified trimester Status: Acute (2) Positive testing for group B Streptococcus: Code(s): B95.1 - Streptococcus, group B, as the cause of diseases classified elsewhere Status: Acute DS: Summary Hospital Course Reason for hospitalization: Patient was admitted in active labor on 04/22 25 and delivered on the early of 04/23/2025 with 6 doses of ampicillin and epidural anesthesia Hospital Course: Patient's hospital course unremarkable. She remained afebrile. She was up, voiding without difficulty ambulating, generally Time Spent with Patient Time attestation: Total time spent providing and/or coordinating discharge services: Exam Const: General: cooperative, healthy appearing and comfortable Nutritional Appearance: average body habitus Orientation/consciousness: oriented to person, oriented to place and oriented to time HENMT: Head: normal to inspection Resp: Effort & Inspection: normal respiratory effort Cardio: Rate: regular rate Rhythm: regular rhythm Heart sounds: S1 normal heart sound present and S2 normal heart sound present GI: Inspection: normal to inspection (Fundus firm below umbilicus) DS: Data Data Completed and Pending Labs on day of discharge: Labs from last 24 hours 04/22/25 04/22/25 04/22/25 10:58 10:57 10:57 WBC 15.3 H RBC 4.62 Hgb 12.5 Hct 38.5 MCV 83.3 MCH 27.1 MCHC 32.5 RDW 14.6 H Plt Count 252 MPV 10.6 H Immature Gran % (Auto) 0.8 H Neut % (Auto) 72.7 Lymph % (Auto) 19.1 Josephine % (Auto) 6.9 Eos % (Auto) 0.4 Baso % (Auto) 0.1 L Lymph # (Auto) 2.93 Josephine # (Auto) 1.1 H Eos # (Auto) 0.1 Baso # (Auto) 0.0 Abs Immat Gran (auto) 0.13 H Absolute Neuts (auto) 11.1 H Absolute Nucleated RBC 0.000 Nucleated RBC % 0.0 Sodium 133 L Potassium 3.9 Chloride 107 Carbon Dioxide 18 L Anion Gap 8 BUN 8 Creatinine 0.46 L Estim Creat Clear Calc Not Reportable Estimated GFR > 60 Glucose 91 Uric Acid 5.8 Cancelled Calcium 9.1 Total Bilirubin 0.2 AST 26 ALT 12 Alkaline Phosphatase 149 H Total Protein 7.0 Albumin 3.6 Syphilis IgG/IgM Ab Negative HIV 1&2 Ab/P24 Ag 4thGn Negative Blood Type O Positive Antibody Screen Negative Discharge Plan Discharge Attending physician on discharge: Uzair Buchanan Discharging Clinician: Uzair Buchanan Patient Disposition: Home Activity: may shower, no straining and pelvic rest Diet: heart healthy Wound Care Instructions: follow printed instructions Patient Instructions: Antibiotic Form Patient Language: Greenlandic Stand Alone Forms: General Discharge Information Follow-up/Referrals: Uzair Buchanan MD [Physician] - Discharge Medications: Continued acetaminophen 325 mg tablet 325 mg PO PRN PRN (Reason: Pain) Tums 300 mg (750 mg) tablet,chewable 300 mg PO QID PRN (Reason: dyspepsia) Vitamin 27 mg iron- 800 mcg tablet 1 tablet PO DAILY Date of admission: 04/22/25 08:24 Primary Care Provider: PHYSICIAN,DOUBLE ENDING MACHINE OPERATOR Admitting Provider: Uzair Buchanan Attending physician on admission: Uzair Buchanan Condition: Stable
[2025-04-23] MEDS: IBUPROFEN 600 MG TABLET PO ×2 (05:00→21:23)
[2025-04-23] MEDS: OXYTOCIN 30 UNITS/NS 500 ML 30 UNITS/500 ML BAG 125 UNITS IV CONT (05:00)
--- NOTE | 2025-04-23 07:14 | PC.NURSE ---
Patient transferred to post room #278 via wheelchair. Support person present. Oriented to unit, room, information board, rooming in, admission packet and security measures. Patient verbalizes understanding.
--- NOTE | 2025-04-23 15:43 | PC.NURSE ---
0830 Consulted with patient to assess needs related to . Discussed with mother her successes, concerns and any questions she has. Per mother baby breastfed at 0500 and did well. Per mother she had already attempted at the breast and baby would not latch, she did hand express and gave baby several drops of colostrum. We reviewed working with the , supporting breast, protecting her nipples with an optimal deep latch, good positioning, and good hand washing. Encouraged understanding the benefits of skin to skin, responding to feeding cues, frequencies of feeding 8-12 times in 24 hours (approximately 2-3 hours), duration of feedings, milk production, intake/output feeding sheet and signs of adequate intake encouraging swallowing at the breast. Reviewed positioning and alignment, supporting breast, off-centered (asymmetrical latch) and leading with the chin with big, open, wide gape. Education given to the mother of how to visualize the suckling (with good rocking jaw motion) swallows (dropping of the lower jaw) and how to listen for drinking at the breast (the ka sound). Nipple care reviewed with optimal latch, good positioning and using clean hands when touching her breast. Resources used to facilitate learning were used from the [visual handouts/ tool/mom and baby guide]. Mother voiced understanding of the education shared, to call for assistance if the infant does not latch or if there is discomfort with . Reported to the Primary RN. 1100 CLC to room to check on 's feedings, mother had not called out for assistance. Per mother baby would not latch again and she went ahead and hand expressed colostrum into infant's mouth. Baby is resting quietly swaddled while mother is holding him. Encouraged mother to call out with the next feeding to assist with latching. 1240 M. David, CLC to room, she assisted with latching and observed the feeding for at least 5 minutes. Mother to call out if any further assistance needed. Reported to primary RN.
[2025-04-24 04:26] VITALS: BP 124/64; PULSE 87; RESP 16; TEMP 36.6; O2SAT 97
[2025-04-24 04:53] LABS: Hematocrit 33.6 % (37.0-47.0)
--- NOTE | 2025-04-24 07:20 | P.PNOB_ITS ---
OB - PN: Subj Subjective Date/time seen: 04/24/25 07:20 Patient comments: no complaints, pain well controlled and tolerating diet [place] baby status: doing well OB - PN: Obj Data Labs 04/24/25 04:28 04/22/25 10:57 Labs: Laboratory Results - last 24 hr 04/24/25 04:28 Hgb 11.0 L Hct 33.6 L OB - PN A/P Assessment and Plan (1) Term : Code(s): Z34.90 - Encounter for supervision of normal , unspecified, unspecified trimester Status: Acute (2) Positive testing for group B Streptococcus: Code(s): B95.1 - Streptococcus, group B, as the cause of diseases classified elsewhere Status: Acute Time Spent With Patient Time: Total time spent is greater than 50% in coordination of care (as documented) at patient's floor/unit and/or counseling patient: Review of Systems 2 Review of Systems: CONSTITUTIONAL: Denies fever, chills, or sweats. GASTROINTESTINAL: See HPI. GENITOURINARY: Denies dysuria or hematuria. MUSCULOSKELETAL: See HPI. All systems reviewed & are unremarkable except as noted in HPI and below Exam 2 Const: General: cooperative, healthy appearing and comfortable Nutritional Appearance: average body habitus Orientation/consciousness: oriented to person, oriented to place and oriented to time HENMT: Head: normal to inspection Resp: Effort & Inspection: normal respiratory effort Cardio: Rate: regular rate Rhythm: regular rhythm Heart sounds: S1 normal heart sound present and S2 normal heart sound present GI: Inspection: normal to inspection (Fundus firm below umbilicus)
[2025-04-24 07:45] VITALS: BP 126/78; PULSE 83; RESP 16; TEMP 37.3; O2SAT 98
[2025-04-24] MEDS: MULTIVIT/MIN/PREN/FOL AC/IRON TABLET 1 TAB PO (08:07)
[2025-04-24] MEDS: IBUPROFEN 600 MG TABLET PO ×3 (08:07→23:31)
--- NOTE | 2025-04-24 08:10 | WPDANLDPN2 ---
Anes-Prog Note L&D Date/Time: 04/24/25 08:10 Comfortable throughout: labor and delivery Neuraxial method: epidural Epidural/Spinal procedure site: clean & non-tender Neuro status: Neuro function grossly intact. Cardiovascular status: normal Respiratory status: normal Airway patency: baseline Mental status: baseline Post-Op hydration status: normal Vital Signs: Last Vital Signs Temp 36.6 C 04/24/25 04:26 Pulse 87 04/24/25 04:26 Resp 16 04/24/25 04:26 BP 124/64 04/24/25 04:26 Pulse Ox 97 04/24/25 04:26 O2 Del Method Room Air 04/23/25 20:15 Pain score (VAS): 12/05 Post-procedural complaints: none Patient feedback: Patient satisfied with anesthetic care.
--- NOTE | 2025-04-24 13:30 | PC.NURSE ---
0930 Per Primary RN, baby had not breastfed since around 0400. CLC went in to see mother and check if baby had fed since returning from his circumcision that he had done around 0700. When entering the room, baby is asleep in his crib and mother is asleep in bed, father of baby woke up, per dad baby had last maybe fed around 0400, CLC then advised him that baby needed to feed now, we were now at about 5.5 hours from last feeding and he may need to check a blood sugar soon if he will not breastfeed. Per FOB, mother has not slept much since delivery yesterday, CLC offered to bring in a formula bottle that FOB could feed while mother was asleep, he declined and said he would wake her, come back in 5 minutes and she will be ready. 938 CLC returned to the room, mother was now in the bathroom, asked FOB to have mother push her call light button when she is ready. 0950 Mother called out, CLC now at bedside, attempted to wake and latch baby for 12 minutes. He would open mouth but would not suck, mother tried to hand express and minimal amount of colostrum seen. Baby would not even suck on a gloved finger. Per the blue feeding chart baby last breastfed for 10 minutes around 0400, before that was around midnight. Per mother, baby did not really feed at the 4am feeding, his last good feed was at the midnight time and baby had circumcision around 0700 and received Tylenol, this CLC RN is going to check a blood sugar, weight and bili and have the primary RN call Dr. Nuñez. CLC advised mother to retrieve her breast pump and possibly use if she can since baby did not latch to protect her milk supply, mother agreed. CLC offered to do her nipple measurement but mother declined, said she already had done that. 1005 Baby in nursery with Primary RN and CLC, baby was was weighed and bili check done. Glucose check done at 1013, it was 58, so baby will need supplementation at this time per protocol. Plan will be to go ahead and start the --15 feeding plan. 1020 Baby returned to parents, CLC advised of glucose level and that baby would need supplementation at this time. While baby was in nursery, mother was able to use her breast pump and pumped 9mls of colostrum without any pain. [id number] CLC put colostrum in a bottle and mother attempted to bottle feed but baby would not suck, CLC took over and with chin support, he was able to take the 9mls in 15 mins. CLC then put 8mls of Enfamil in bottle and mother wanted to feed, CLC got her started and then will come back and check. 1055 Primary RN checked in with parents and baby had only taken 1 ml of formula in the last 10 minutes. [id number] CLC returned to room, and with chin support was able to get baby to take another 5mls of formula in 15 minutes, so total feed was 15mls but took 45 minutes to complete. (9mls colostrum, 6mls Enfamil), CLC advised parents about the 15-15-15 feeding plan and that the entire feeding should take about 30 minutes total. Primary RN had talked with Dr. Nuñez and per his orders baby needs glucose checked before feedings and will need 3 consecutive over 60 to be discontinued. CLC and Primary RN advised parents that an alarm needs to be set and baby needs to feed every 3 hours or sooner if showing feeding cues, please call out for the glucose check before feeding. Parents agreed. *8Copy of note also in baby's chart
--- NOTE | 2025-04-24 14:26 | PC.NURSE ---
1320. Called to patients room to assist with checking infants blood sugar and assisting mom with feeding infant. Infant showing feeding cues upon RN entering room. RN asked mom how long infant had been showing feeding cues and mom said for about an hour. Mom stated that she wanted to be really hungry so he would have a good feeding. Reviewed with mom all types of different hunger cues infants show, and that infants need to eat right away when showing hunger cues and not to wait for a timer or a certain amount of time to pass before feeding. We reviewed that it is best not to go longer than 3 hours between feedings but if is showing feeding cues before that 3 hour pavel, mom should go ahead and feed infant. Mom verbalized understanding. Infants blood sugar 54, needed to be above 60. Per the protocol infant needed to be supplemented with 10-15ml of formula. Mom attempted to breastfeed with RN's help for about 10 min but infant was too sleepy and reluctant to suck. Infant had a few good latches but did not attempt to suckle at the breast. RN reviewed with mom how to pace bottle feed and provide proper chin support. Mom requested that RN feed for this feeding. Infant took 15 cc of Enfamil. Demonstrated how to properly burp . Mom verbalized understanding. Mom instructed to call with infants next feeding cue to check infants sugar before next feeding. Reviewed infant should not go longer than 3 hours between feedings but he may show feeding cues before then and to be ready to feed at that time. Reported to the primary RN.
[2025-04-24] MEDS: DOCUSATE SODIUM 100 MG CAPSULE PO (14:59)
--- NOTE | 2025-04-24 17:32 | PC.NURSE ---
1630. With mom at this time to assist with after blood sugar check. Infants blood sugar was 65. Infant attempted to latch at the breast. Reviewed benefits of skin to skin (demonstrating unwrapping and placing upright on her chest), stimulating with massage touch, changing positions to encourage wakefulness, how to watch for early feeding cues, responsive feeding, feeding on demand (aiming for 8-12 times in 24 hours, about every 2-3 hours), milk production, building/maintaining a milk supply, duration of feeding, signs of adequate intake/output and how to record on the feeding sheet. Mother requires lots of assistance in getting positioning and alignment correct. Observed and assisted mother latching to the [left ] breast in [football] position. Infant [was not] able to maintain an appropriate latch. very sleepy and reluctant to latch. No suck reflex present with latch. Multiple attempts made at the breast for about 10 min. Infant bottle fed 16 cc and feeding BF attempt. Reported to the primary RN.
[2025-04-24 19:37] VITALS: BP 119/72; PULSE 91; RESP 16; TEMP 36.7; O2SAT 99
[2025-04-25 08:37] VITALS: BP 133/84; PULSE 96; RESP 18; TEMP 36.6; O2SAT 99
--- NOTE | 2025-04-25 09:00 | PC.NURSE ---
Patient is currently pump and bottle feeding. Ineffective feeding plan entered on 's discharge. Reviewed standard discharge information with patient including monitoring for required output, transition of stools, feeding 8-12 times every 24 hours, milk production, and follow up at [place] and with shop supervisor in the first week of life. Parents are encouraged to take the feeding log and continue to track feedings and output for the first week . Offered outpatient resources with [facility] referral and Services at [place]. Reviewed frequency and duration of pumping. Patient has the Mom/Baby Guide for further education and reference for common concerns, phone numbers, and guidance on when to call the doctor. A feeding plan was added to the infant?s discharge plan. Patient states that she has no further questions or concerns regarding .???
[2025-04-25] MEDS: IBUPROFEN 600 MG TABLET PO (09:14)
[2025-04-25] MEDS: MULTIVIT/MIN/PREN/FOL AC/IRON TABLET 1 TAB PO (09:14)
[2025-04-25] MEDS: DOCUSATE SODIUM 100 MG CAPSULE PO (09:14)
[2025-04-27 11:20] VITALS: BP 131/72; PULSE 87; RESP 18; TEMP 37.2; O2SAT 99
== END 2025-04-25 12:50 | disposition home or self-care (01) | DRG 807 ==
LOC: ANHLDR 04-23 04:45 → ANHOB2 04-23 07:17
PROVIDERS: Admitting Provider Obstetrics & Gynecology; Visit Provider Obstetrics & Gynecology
DX: O99.824 Streptococcus B carrier state complicating childbirth (principal); Z37.0 Single live birth; O32.6XX0 Maternal care for compound presentation, not applicable or unspecified; Z3A.40 40 weeks gestation of pregnancy
CPT/HCPCS: 36415; 80053; 84550; 85014; 85018; 85025; 86593; 86703; 86850; 86900; 86901; A9270; G0432; J0290; J2405; J2590; J2795; J3010; J7030; J7120